=== PATIENT | male | born 2000 | race Caucasian/White ===

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

== ENCOUNTER → 2020-08-12 | Outpatient (CLI) | payer OTHER ==
--- NOTE | 2020-08-12 11:41 | REP ---
INDICATION: LEFT KNEE PAIN COMPARISON: None. TECHNIQUE: AP, lateral, bilateral oblique, tunneled and sunrise views. FINDINGS: The osseous structures and joint spaces are intact and normal. There is no evidence for acute fracture or dislocation. No joint effusion is appreciated. Surrounding soft tissues are unremarkable. No subcutaneous emphysema or radiodense foreign body. IMPRESSION: Normal examination. No acute fracture or dislocation. <Electronically signed by Dmitriy Yates > 08/12/20 1153
== END ==
LOC: M SOG 08:01
PROVIDERS: ATTEND Orthopaedic Surgery Sports Medicine
DX: M23.332 Other meniscus derangements, other medial meniscus, left knee (principal)